=== PATIENT | female | born 1990 | race Caucasian/White ===

== ENCOUNTER 2022-03-10 07:59 | Emergency (ER) | payer BC, OTHER ==
--- NOTE | 2022-03-10 08:05 | ERPHSYRPT ---
- History of Present Illness Time Seen by Provider: 03/10/22 08:03 Source: patient Exam Limitations: no limitations Physician History: This is a 31-year-old white female patient of nurse practitioner Janett Horowitz who tripped over baggage yesterday but did not fall and hit the ground and presents today with pain in her paraspinous muscles on the right side that shoots into her buttock and down the posterior aspect of her right leg. She feels as though she may have pulled a muscle. She is able to ambulate. She was feeling fine prior to that tripping episode. Patient takes no medications chronically and is allergic to penicillin only. Method of Injury: other (Tripped but did not fall and hit the ground) Occurred: yesterday Quality: sharpness, stabbing Severity of Pain-Max: moderate Severity of Pain-Current: moderate Lower Extremities Pain: hip: right Modifying Factors: Improves With: movement Associated Symptoms: none Allergies/Adverse Reactions: Penicillins Allergy (Intermediate, Verified 03/10/22 08:10) Rash Hx Tetanus, Diphtheria Vaccination/Date Given: No Hx Influenza Vaccination/Date Given: Yes Hx Pneumococcal Vaccination/Date Given: No Travel Risk - International Travel Have you traveled outside of the country in past 3 weeks: No - Coronavirus Screening Are you exhibiting any of the following symptoms?: No Close contact with a COVID-19 positive Pt in past 14-21 Days: No - Review of Systems Constitutional: No Symptoms Eyes: No Symptoms Ears, Nose, & Throat: No Symptoms Respiratory: No Symptoms Cardiac: No Symptoms Abdominal/Gastrointestinal: No Symptoms Genitourinary Symptoms: No Symptoms Musculoskeletal: Injury (Right paraspinous muscle on buttock from tripping) Skin: No Symptoms Neurological: No Symptoms Psychological: No Symptoms Endocrine: No Symptoms Hematologic/Lymphatic: No Symptoms Immunological/Allergic: No Symptoms All Other Systems: Reviewed and Negative - Past Medical History Pertinent Past Medical History: No Neurological History: No Pertinent History ENT History: No Pertinent History Cardiac History: No Pertinent History Respiratory History: No Pertinent History Endocrine Medical History: No Pertinent History Musculoskeletal History: No Pertinent History GI Medical History: No Pertinent History History: No Pertinent History Psycho-Social History: No Pertinent History Female Reproductive Disorders: No Pertinent History Other Medical History: child x1 - Past Surgical History Past Surgical History: No Neuro Surgical History: No Pertinent History Cardiac: No Pertinent History Gastrointestinal: No Pertinent History Genitourinary: No Pertinent History Musculoskeletal: No Pertinent History Female Surgical History: No Pertinent History Other Surgical History: hx of spinal h/a after epidural - Social History Smoking Status: Never smoker Exposure to second hand smoke: No Drug Use: none Patient Lives Alone: No - Nursing Vital Signs Nursing Vital Signs: Initial Vital Signs Temperature 98.6 F 03/10/22 08:11 Pulse Rate 78 03/10/22 08:11 Respiratory Rate 17 03/10/22 08:11 Blood Pressure 112/66 03/10/22 08:11 O2 Sat by Pulse Oximetry 100 03/10/22 08:11 Pain Scale Pain Intensity [Right hip/ 8 buttocks] Pain Intensity 8 - Physical Exam General Appearance: no apparent distress, alert, anxiety Eyes, Ears, Nose, Throat Exam: normal ENT inspection, moist mucous membranes Neck Exam: normal inspection, non-tender, supple, full range of motion Cardiovascular/Respiratory Exam: chest non-tender, no respiratory distress Gastrointestinal/Abdominal Exam: non-tender Back Exam: normal inspection, normal range of motion, muscle spasm, No CVA tenderness, No vertebral tenderness Hips Exam: right: soft tissue tenderness, left: non-tender, bilateral: normal inspection, normal range of motion, no evidence of injury Legs Exam: bilateral leg: non-tender, normal inspection, normal range of motion, no evidence of injury Knees Exam: bilateral knee: non-tender, normal inspection, normal range of motion, no evidence of injury Ankle Exam: bilateral ankle: non-tender, normal inspection, normal range of motion, no evidence of injury Foot Exam: bilateral foot: non-tender, normal inspection, normal range of motion, no evidence of injury Neuro/Tendon Exam: normal sensation, normal motor functions, normal tendon functions, responds to pain, no evidence tendon injury Mental Status Exam: alert, oriented x 3, cooperative Skin Exam: normal color, warm, dry SpO2 Interpretation: normal O2 Delivery: Room Air - Course Nursing assessment & vital signs reviewed: Yes - Progress Progress: improved, pain not gone completely Counseled pt/family regarding: diagnosis, need for follow-up - Departure Departure Disposition: Home Clinical Impression: Muscle spasm, Sciatica Condition: Stable Critical Care Time: No Referrals: YUSEF HOROWITZ NP [Primary Care Provider] - Follow up/PCP as directed Additional Instructions: May alternate ice and heat application. Massage the area 2-3 times a day. Take your medication as prescribed. Follow-up with your nurse practitioner if symptoms persist. Prescriptions: Prednisone 10 mg [Deltasone 10 mg] 10 mg PO TID #12 tablet Orphenadrine Citrate 100 mg [Norflex 100 MG Tablet] 100 mg PO BID #10 tab
[2022-03-10] MEDS ORDERED: solu-MEDROL 125 MG, Sterile H2O 10 ml 2 ML IM ONE ×2 (08:24)
[2022-03-10] MEDS ORDERED: Norflex 60 MG/2 ML IM ONE (08:25)
[2022-03-10] MEDS ORDERED: Sterile H2O 10 ml IJ ONE (08:32)
[2022-03-10] MEDS ORDERED: Norflex 60 MG/2 ML ONE (08:33)
[2022-03-10] MEDS ORDERED: solu-MEDROL ONE (08:33)
[2022-03-10 08:56] VITALS: BP 116/64; PULSE 72; O2SAT 98
== END 2022-03-10 08:49 | disposition home or self-care (01) ==
LOC: ED 07:59
DX: M62.830 Muscle spasm of back (principal); M54.31 Sciatica, right side; Z79.52 Long term (current) use of systemic steroids
CPT/HCPCS: 96372; 99283; J2360; J2930

== ENCOUNTER 2023-06-21 18:41 | Emergency (ER) | payer OTHER ==
[2023-06-21] MEDS ORDERED: TORAdol 30 mg Injection IM ONE (21:04)
[2023-06-21] MEDS ORDERED: TORAdol 30 mg Injection ONE (21:06)
[2023-06-21 21:08] VITALS: RESP 16; TEMP 97.3
--- NOTE | 2023-06-21 22:13 | ERPHSYRPT ---
- History of Present Illness Time Seen by Provider: 06/21/23 21:10 Source: patient Exam Limitations: no limitations Patient Subjective Stated Complaint: pt states she fell of the bleachers at a game last night and hurt her ankle and foot Triage Nursing Assessment: pt alert and oriented, answers questions approp. pt ambulates back to room with slightly limping gait noted. respirations nonlabored. skin warm and dry. bruising and swelling noted to outer aspect of rt ankle and foot. pt reports tenderness, normal sensation to rt foot. pedal pulse and cap refill wnl. Physician History: Patient is a 32-year-old female presents to our ED for evaluation of right foot pain. Patient states she was descending bleachers when she inverted her right foot. Injury occurred yesterday. Patient went to work today and ambulated throughout the day with her injured foot. Patient is here because the foot is swollen and bruising observed at the lateral aspect of the ankle. Pain described as an ache that is localized. Pain worse with movement and palpation. Pain improved with rest. No other injuries reported. Patient voices no other complaints or concerns at this time. Portions of this note were created with voice recognition technology. There may be grammatical, spelling, punctuation or sound alike errors Method of Injury: twisted Occurred: yesterday Quality: constant Severity of Pain-Max: moderate Severity of Pain-Current: mild Lower Extremities Pain: foot: right, ankle: right Modifying Factors: Improves With: movement Associated Symptoms: none Allergies/Adverse Reactions: Penicillins Allergy (Intermediate, Verified 06/21/23 21:09) Rash Hx Tetanus, Diphtheria Vaccination/Date Given: Yes Hx Influenza Vaccination/Date Given: No Hx Pneumococcal Vaccination/Date Given: No Immunizations Up to Date: Yes Travel Risk - International Travel Have you traveled outside of the country in past 3 weeks: No - Coronavirus Screening Are you exhibiting any of the following symptoms?: No Close contact with a COVID-19 positive Pt in past 14-21 Days: No - Vaccine Status Have you recieved a Covid-19 vaccination: Yes [employer]: [employer] - Vaccination Dates Date of 2cond Vaccination (if applicable): 2020 - Review of Systems Constitutional: No Symptoms, No Fever, No Chills Eyes: No Symptoms Ears, Nose, & Throat: No Symptoms Respiratory: No Symptoms, No Cough, No Dyspnea Cardiac: No Symptoms, No Chest Pain, No Edema, No Syncope Abdominal/Gastrointestinal: No Symptoms, No Abdominal Pain, No Nausea, No Vomiting, No Diarrhea Genitourinary Symptoms: No Symptoms, No Dysuria Musculoskeletal: No Symptoms, No Back Pain, No Neck Pain Skin: No Symptoms, No Rash Neurological: No Symptoms, No Dizziness, No Focal Weakness, No Sensory Changes Psychological: No Symptoms Endocrine: No Symptoms Hematologic/Lymphatic: No Symptoms Immunological/Allergic: No Symptoms All Other Systems: Reviewed and Negative - Past Medical History Pertinent Past Medical History: No Neurological History: No Pertinent History ENT History: No Pertinent History Cardiac History: No Pertinent History Respiratory History: No Pertinent History Endocrine Medical History: No Pertinent History Musculoskeletal History: No Pertinent History GI Medical History: No Pertinent History History: No Pertinent History Psycho-Social History: No Pertinent History Female Reproductive Disorders: No Pertinent History Other Medical History: child x1 - Past Surgical History Past Surgical History: No Neuro Surgical History: No Pertinent History Cardiac: No Pertinent History Gastrointestinal: No Pertinent History Genitourinary: No Pertinent History Musculoskeletal: No Pertinent History Female Surgical History: No Pertinent History Other Surgical History: hx of spinal h/a after epidural - Social History Smoking Status: Never smoker Exposure to second hand smoke: No Drug Use: none Patient Lives Alone: No - Female History Hx Last Menstrual Period: 3 weeks Hx Now: No - Nursing Vital Signs Nursing Vital Signs: Initial Vital Signs Temperature 97.3 F 06/21/23 20:59 Pulse Rate 69 06/21/23 20:59 Respiratory Rate 16 06/21/23 20:59 Blood Pressure 132/67 06/21/23 20:59 O2 Sat by Pulse Oximetry 100 06/21/23 20:59 Pain Scale Pain Intensity 6 - Physical Exam General Appearance: no apparent distress, alert Neck Exam: non-tender, supple Cardiovascular/Respiratory Exam: normal breath sounds, regular rate/rhythm, no respiratory distress Gastrointestinal/Abdominal Exam: non-tender Back Exam: normal inspection, No vertebral tenderness Hips Exam: bilateral: non-tender, normal inspection, normal range of motion, no evidence of injury Legs Exam: bilateral leg: non-tender, normal inspection, normal range of motion, no evidence of injury Knees Exam: bilateral knee: non-tender, normal inspection, normal range of motion, no evidence of injury Ankle Exam: right ankle: pain, soft tissue tenderness, swelling, left ankle: non-tender, normal inspection, normal range of motion, no evidence of injury Foot Exam: right foot: soft tissue tenderness, swelling, left foot: non-tender, normal inspection, normal range of motion, no evidence of injury Neuro/Tendon Exam: normal sensation, normal motor functions Mental Status Exam: alert, oriented x 3, cooperative Skin Exam: normal color, warm, dry SpO2 Interpretation: normal SpO2: 99 O2 Delivery: Room Air - Course Nursing assessment & vital signs reviewed: Yes - Radiology Exams Ankle X-ray Interpretation: Interpreted by me (No fracture dislocations) Foot X-ray Interpretation: Interpreted by me (No fracture or dislocations) Ordered Tests: Active Orders 24 hr Category Date Time Status ANKLE (3 VIEWS) Stat Exams 06/21/23 20:58 Taken FOOT (MINIMUM 3 VIEWS) Stat Exams 06/21/23 20:58 Taken Medication Summary Discontinued Medications Generic Name Dose Route Start Last Admin Trade Name Freq PRN Reason Stop Dose Admin Ketorolac Tromethamine 30 mg 06/21/23 21:04 06/21/23 21:10 Ketorolac Tromethamine 30 Mg/Ml Inj IM 06/21/23 21:05 30 mg STAT ONE Administration Ketorolac Tromethamine Confirm 06/21/23 21:06 Ketorolac Tromethamine 30 Mg/Ml Inj Administered 06/21/23 21:07 Dose 30 mg .ROUTE .STK-MED ONE - Progress Progress: improved Progress Note: Patient is a 32-year-old female presents to our ED for evaluation of pain to her right foot and ankle after an inversion injury. Physical exam reveals some ecchymosis soft tissue tenderness and swelling to the lateral aspect of the right foot and ankle. The involved extremities neurovascular intact distally compartments are soft cap refill less than 2 seconds. X-ray of the foot and ankle are negative for fracture dislocation. Patient received Toradol for pain control. Patient received bilateral axillary crutches and referral to the orthopedic clinic. Patient voices no other complaints or concerns at this time. She will follow-up in the orthopedic clinic as discussed. She voices no other complaints or concerns at this time. Portions of this note were created with voice recognition technology. There may be grammatical, spelling, punctuation or sound alike errors Complexity problem addressed is low acute uncomplicated No critical care time Complex of data reviewed and analyzed is moderate. Dr. Dunlap independently reviewed the x-rays of both the right foot and right ankle. Risk of complication and or risk morbidity/mortality of patient management is moderate. A prescription for Toradol forwarded to patient's pharmacy. Patient referred to the orthopedic clinic. Time spent to discharge patient is approximately 15 minutes. Plan of care established for shared decision making. No social determinants of health present impede follow-up. Portions of this note were created with voice recognition technology. There may be grammatical, spelling, punctuation or sound alike errors 06/21/23 22:22 06/21/23 22:24 Counseled pt/family regarding: diagnosis, need for follow-up, rad results - Departure Departure Disposition: Home Clinical Impression: Foot sprain, Ankle sprain, Contusion of soft tissue Condition: Stable Critical Care Time: No Referrals: YUSEF ESCOBAR COMPUTER PERIPHERAL EQUIPMENT OPERATOR [Primary Care Provider] - Follow up/PCP as directed Instructions: Foot Sprain (DC) Additional Instructions: Discharge/Care Plan JENNIFER CALDERON DIETER was seen on 06/21/23 in the Emergency Room. The patient was counseled regarding Diagnosis,Lab results, Imaging studies, need for follow up and when to return to the Emergency Room. Prescriptions given: Discharge Note I have spoken with the patient and/or caregivers. I have explained the patient's condition, diagnosis and treatment plan based on the information available to me at this time. I have answered the patient's and/or caregiver's questions and addressed any concerns. The patient and/or caregivers have as good understanding of the patient's diagnosis, condition and treatment plan as can be expected at this point. The vital signs have been stable. The patient's condition is stable and appropriate for discharge from the emergency department. The patient will pursue further outpatient evaluation with the primary care physician or other designated or consulting physician as outlined in the discharge instructions. The patient and/or caregivers are agreeable to this plan of care and follow-up instructions have been explained in detail. The patient and/or caregivers have received these instruction. The patient/and or caregivers are aware that any significant change in condition or worsening of symptoms should prompt an immediate return to this or the closest emergency department or call 911. Prescriptions: Ketorolac Trometh 10 mg Tab [TORAdol 10 MG TABLET] 10 mg PO TID 5 Days #15 tablet Outpatient Orders: Ortho Referral Time Frame: 1 Day, Facility: [facility], Location: ORTHO CLINIC
[2023-06-21 22:39] VITALS: BP 122/70; PULSE 74; O2SAT 100
--- NOTE | 2023-06-22 08:58 | XRAY ---
Indication: Pain, swelling, and bruising following fall. Comparison: None 3 nonweightbearing views right foot demonstrates small calcaneal bone island and tiny navicular accessory ossicle. No other bony, articular, or soft tissue abnormalities.
--- NOTE | 2023-06-22 08:58 | XRAY ---
Indication: Pain, swelling, and bruising following fall. Comparison: None 3 view right ankle demonstrates soft tissue swelling and incidental small calcaneal bone island. No other bony, articular, or soft tissue abnormalities.
== END 2023-06-21 22:40 | disposition home or self-care (01) ==
LOC: ED 18:41
DX: S93.601A Unspecified sprain of right foot, initial encounter (principal); S93.401A Sprain of unspecified ligament of right ankle, initial encounter; X50.0XXA Overexertion from strenuous movement or load, initial encounter; Y92.39 Other specified sports and athletic area as the place of occurrence of the external cause
CPT/HCPCS: 73610; 73630; 96372; 99283; J1885